=== PATIENT | male | born 1950 | race Caucasian/White ===

== ENCOUNTER 2024-11-15 21:33 | Inpatient (IN) | payer OTHER, MEDICARE ==
[~2024-11-15] VITALS: Ht 188 cm; Wt 72.4 kg
[2024-11-15 21:53] LABS: BASOPHILS % (AUTO) 0.3 % (0-1); EOSINOPHILS # (AUTO) 0.1 X10'3 (0-0.9); EOSINOPHILS % (AUTO) 0.3 % (0-6); HEMATOCRIT 38.8 % (42.0-52.0); HEMOGLOBIN 13.1 g/dl (14.0-17.9); LYMPHOCYTES # (AUTO) 1.7 X10'3 (1.1-4.8); LYMPHOCYTES % (AUTO) 12.1 % (21-51); MEAN CORPUSCULAR HEMOGLOBIN 30.7 PG (27.0-31.0); MEAN CORPUSCULAR HGB CONC 33.9 g/dL (33.0-36.5); MEAN CORPUSCULAR VOLUME 90.5 FL (78-98); MEAN PLATELET VOLUME 8.8 FL (7.4-10.4); MONOCYTES % (AUTO) 6.9 % (2-12); NEUTROPHILS # (AUTO) 11.7 X10'3 (1.8-7.7); NEUTROPHILS % (AUTO) 80.4 % (42-75); PLATELET COUNT 198 X10'3 (140-440); RED BLOOD COUNT 4.28 X10'6 (4.70-6.10); RED CELL DISTRIBUTION WIDTH 14.2 % (11.5-14.5); WHITE BLOOD COUNT 14.5 X10'3 (4.5-11.0)
[2024-11-15] MEDS ORDERED: iohexol 350 MG/ML 50ML vial IV ONE (21:58)
[2024-11-15] MEDS ORDERED: fentaNYL/PF 50MCG/1 ML 2ML syringe ONE (21:58)
[2024-11-15] MEDS ORDERED: iohexol 350MG/ML 100ml bottle IV ONE ×2 (21:58→22:15)
[2024-11-15] MEDS ORDERED: heparin 1,000unit/ml 10ml vial 10 ML ONE (21:58)
[2024-11-15] MEDS ORDERED: midazolam 1 mg/ML 2ml injection ONE (21:58)
[2024-11-15] MEDS ORDERED: verapamil 2.5 mg/ml inj IV ONE (21:58)
[2024-11-15] MEDS ORDERED: LIDOcaine 1% (10mg/ml) 2ml vial ONE (21:58)
[2024-11-15] MEDS ORDERED: nitroGLYCERIN 500mcg/5mL D5W 5 ML IV ONE ×2 (22:01→22:44)
[2024-11-15 22:07] LABS: APTT 43 SECONDS (22-32); INR 1.1 INR; PROTHROMBIN TIME 11.1 SECONDS (9.0-12.0)
[2024-11-15 22:09] LABS: ALANINE AMINOTRANSFERASE 18 U/L (12-78); ALBUMIN 3.4 G/DL (3.4-5.0); ALKALINE PHOSPHATASE 56 IU/L (46-116); ANION GAP 9 (8-16); ASPARTATE AMINO TRANSFERASE 12 U/L (10-37); BILIRUBIN,TOTAL 0.8 MG/DL (0.1-1.0); BLOOD UREA NITROGEN 22 MG/DL (7-18); BUN/CREATININE RATIO 16.8 (10.0-20.0); CALCIUM 8.6 MG/DL (8.5-10.1); CHLORIDE 107 MMOL/L (99-107); CREATININE 1.31 MG/DL (0.60-1.10); GLUCOSE 164 MG/DL (70-104); POTASSIUM 3.9 MMOL/L (3.5-5.1); SODIUM 139 MMOL/L (135-145); TOTAL CARBON DIOXIDE 23.5 MMOL/L (24-32); TOTAL PROTEIN 6.7 G/DL (6.4-8.2); eCRCL 49 ML/MIN; eGFR 53 ML/MIN
[2024-11-15] MEDS ORDERED: atropine 0.1mg/ml 10ml syringe ONE (22:13)
[2024-11-15] MEDS ORDERED: LIDOcaine 1% 30ml preserv. free vial ONE (22:13)
[2024-11-15 22:16] LABS: PRO BRAIN NATRIURETIC PEPTIDE 118 PG/ML (0-450)
[2024-11-15 22:27] LABS: CREATINE KINASE 61 U/L (39-308); LIPASE 20 U/L (16-77); MAGNESIUM 2.1 MG/DL (1.5-2.4)
[2024-11-15] MEDS ORDERED: ticagrelor 90mg tablet ONE (22:49)
[2024-11-16] VITALS (18 sets, daily range): BP systolic 121–155; BP diastolic 51–70; PULSE 49–66; RESP 14–24; TEMP 97.2–98.7; O2SAT 95–98
[2024-11-16] MEDS ORDERED: acetaminophen 325mg tablet PO PRN (00:05)
[2024-11-16] MEDS ORDERED: HYDROcodone/acetaminophen 5mg/325mg tablet PO PRN (00:05)
[2024-11-16] MEDS ORDERED: potassium Cl 40MEQ/1/2NS 520ml 520 ML IV PRN (00:05)
[2024-11-16] MEDS ORDERED: ondansetron/PF 4mg/2ml inj IV PRN ×2 (00:05)
[2024-11-16] MEDS ORDERED: magnesium hydroxide 30ml (MOM) UD suspension PO PRN (00:05)
[2024-11-16] MEDS ORDERED: magnesium sulf-water 2g/50mL 50 ML IV PRN (00:05)
[2024-11-16] MEDS ORDERED: potassium Cl 20 mEq SR tablet PO PRN ×2 (00:05)
[2024-11-16] MEDS ORDERED: magnesium sulf-water 4G/100mL 100 ML IV PRN (00:05)
[2024-11-16] MEDS ORDERED: mag hydrox/Alum hydrox/simeth 30ml oral suspension PO PRN (00:05)
[2024-11-16] MEDS ORDERED: magnesium Cl slow-release 64mg tablet PO PRN (00:05)
[2024-11-16] MEDS ORDERED: proCHLORperazine 10 MG/2 ml inj IV PRN (00:10)
[2024-11-16] MEDS ORDERED: HYDROcodone/acetaminophen 10/325mg tab PO PRN (00:10)
[2024-11-16] MEDS ORDERED: OXAZEpam 15mg capsule PO PRN (00:10)
[2024-11-16] MEDS: normal saline 1000ml 1,000 ML IV SCH (00:10)
[2024-11-16] MEDS ORDERED: PERFLUTREN PROTEIN-A MICROSPHR (Optison) 0.22 MG/ML 3ML VIAL IV PRN (00:15)
[2024-11-16] MEDS ORDERED: nitroGLYCERIN 0.4mg SUBLingual tab SL PRN (00:20)
[2024-11-16] MEDS ORDERED: heparin 25,000 UNIT/250ml bag 250 ML IV PRN (00:25)
[2024-11-16] MEDS: morphine 2 MG/ML inj. syringe IV PRN (00:52)
[2024-11-16] MEDS: LidoCAINE 2% Topical Jelly 11mL syringe (UROJET) TOP ONE (02:15)
[2024-11-16] MEDS ORDERED: UNABLE TO OBTAIN (02:43)
[2024-11-16] MEDS: HYDROcodone/acetaminophen 5mg/325mg tablet PO PRN (06:44)
[2024-11-16 07:13] LABS: BASOPHILS % (AUTO) 0.2 % (0-1); EOSINOPHILS % (AUTO) 0.1 % (0-6); HEMOGLOBIN 12.1 g/dl (14.0-17.9); LYMPHOCYTES # (AUTO) 1.1 X10'3 (1.1-4.8); LYMPHOCYTES % (AUTO) 15.1 % (21-51); MEAN CORPUSCULAR HEMOGLOBIN 30.7 PG (27.0-31.0); MEAN CORPUSCULAR HGB CONC 33.8 g/dL (33.0-36.5); MEAN CORPUSCULAR VOLUME 90.8 FL (78-98); MONOCYTES # (AUTO) 0.5 X10'3 (0-0.9); MONOCYTES % (AUTO) 6.9 % (2-12); NEUTROPHILS # (AUTO) 5.4 X10'3 (1.8-7.7); NEUTROPHILS % (AUTO) 77.7 % (42-75); PLATELET COUNT 161 X10'3 (140-440); RED BLOOD COUNT 3.96 X10'6 (4.70-6.10); RED CELL DISTRIBUTION WIDTH 14.5 % (11.5-14.5)
[2024-11-16 07:46] LABS: ALANINE AMINOTRANSFERASE 24 U/L (12-78); ALBUMIN 3.1 G/DL (3.4-5.0); ALBUMIN/GLOBULIN RATIO 0.9 (1.1-1.5); ALKALINE PHOSPHATASE 53 IU/L (46-116); ANION GAP 10 (8-16); ASPARTATE AMINO TRANSFERASE 51 U/L (10-37); BILIRUBIN,TOTAL 0.7 MG/DL (0.1-1.0); BLOOD UREA NITROGEN 18 MG/DL (7-18); BUN/CREATININE RATIO 15.9 (10.0-20.0); CALCIUM 8.3 MG/DL (8.5-10.1); CHLORIDE 106 MMOL/L (99-107); CHOL/HDL RATIO 3.5 (0.00-4.99); CHOLESTEROL 175 MG/DL (0-200); CREATININE 1.13 MG/DL (0.60-1.10); GLUCOSE 124 MG/DL (70-104); HDL CHOLESTEROL 50 MG/DL (35-60); LDL CHOLESTEROL 108 MG/DL (50-100); MAGNESIUM 1.7 MG/DL (1.5-2.4); POTASSIUM 4.6 MMOL/L (3.5-5.1); SODIUM 139 MMOL/L (135-145); TOTAL CARBON DIOXIDE 23.2 MMOL/L (24-32); TOTAL PROTEIN 6.4 G/DL (6.4-8.2); TRIGLYCERIDES 67 MG/DL (20-135); eCRCL 57 ML/MIN; eGFR 63 ML/MIN
[2024-11-16] MEDS ORDERED: ticagrelor 90mg tablet PO SCH (08:00)
[2024-11-16] MEDS: K and/or MAG REPLACEMENT MC SCH (08:00)
[2024-11-16] MEDS: docusate sod 100mg capsule PO SCH (09:28)
[2024-11-16] MEDS ORDERED: atorvastatin 20mg tablet PO SCH (20:00)
[2024-11-16] MEDS ORDERED: aspirin 81mg, enteric-coated 1 TAB TABLET.DR PO SCH (20:00)
[2024-11-16] MEDS: ticagrelor 90mg tablet PO SCH (21:23)
[2024-11-16] MEDS: carVEDilol 3.125mg tablet PO SCH (21:24)
[2024-11-16] MEDS: aspirin 81mg, enteric-coated 1 TAB TABLET.DR PO SCH (21:24)
[2024-11-16] MEDS: atorvastatin 20mg tablet PO SCH (21:24)
[2024-11-16] MEDS: acetaminophen 325mg tablet PO PRN (22:53)
[2024-11-17 02:00] VITALS: BP 116/52; PULSE 58; RESP 20; TEMP 98.4; O2SAT 98
[2024-11-17 06:00] VITALS: BP 118/89; PULSE 90; RESP 18; TEMP 96.9; O2SAT 94
[2024-11-17 07:54] LABS: BASOPHILS % (AUTO) 0.4 % (0-1); EOSINOPHILS # (AUTO) 0.1 X10'3 (0-0.9); EOSINOPHILS % (AUTO) 1.7 % (0-6); HEMATOCRIT 35.9 % (42.0-52.0); HEMOGLOBIN 12.4 g/dl (14.0-17.9); LYMPHOCYTES # (AUTO) 2.1 X10'3 (1.1-4.8); LYMPHOCYTES % (AUTO) 24.4 % (21-51); MEAN CORPUSCULAR HEMOGLOBIN 31.1 PG (27.0-31.0); MEAN CORPUSCULAR HGB CONC 34.4 g/dL (33.0-36.5); MEAN CORPUSCULAR VOLUME 90.3 FL (78-98); MEAN PLATELET VOLUME 9.1 FL (7.4-10.4); NEUTROPHILS # (AUTO) 5.2 X10'3 (1.8-7.7); NEUTROPHILS % (AUTO) 61.5 % (42-75); PLATELET COUNT 147 X10'3 (140-440); RED BLOOD COUNT 3.98 X10'6 (4.70-6.10); RED CELL DISTRIBUTION WIDTH 14.1 % (11.5-14.5); WHITE BLOOD COUNT 8.4 X10'3 (4.5-11.0)
[2024-11-17 08:00] VITALS: RESP 16; O2SAT 94
[2024-11-17 08:58] LABS: ALANINE AMINOTRANSFERASE 21 U/L (12-78); ALBUMIN 2.8 G/DL (3.4-5.0); ALBUMIN/GLOBULIN RATIO 0.8 (1.1-1.5); ALKALINE PHOSPHATASE 46 IU/L (46-116); ANION GAP 10 (8-16); ASPARTATE AMINO TRANSFERASE 48 U/L (10-37); BILIRUBIN,TOTAL 0.9 MG/DL (0.1-1.0); BLOOD UREA NITROGEN 18 MG/DL (7-18); BUN/CREATININE RATIO 15.8 (10.0-20.0); CALCIUM 8.4 MG/DL (8.5-10.1); CHLORIDE 107 MMOL/L (99-107); CREATININE 1.14 MG/DL (0.60-1.10); GLUCOSE 97 MG/DL (70-104); MAGNESIUM 1.9 MG/DL (1.5-2.4); POTASSIUM 4.3 MMOL/L (3.5-5.1); SODIUM 139 MMOL/L (135-145); TOTAL CARBON DIOXIDE 22.4 MMOL/L (24-32); TOTAL PROTEIN 6.1 G/DL (6.4-8.2); eCRCL 56 ML/MIN; eGFR 62 ML/MIN
[2024-11-17 11:00] VITALS: BP 133/60; PULSE 97; RESP 18; TEMP 97.7; O2SAT 97
[2024-11-17] MEDS ORDERED: NITR0.4T51 SL (13:03)
[2024-11-17] MEDS ORDERED: CARV-164 PO (13:03)
[2024-11-17] MEDS ORDERED: ASPI-1071 PO (13:03)
[2024-11-17] MEDS ORDERED: TICA90TA PO (13:03)
[2024-11-17] MEDS ORDERED: ATOR20TA66 PO (13:03)
[2024-11-17 15:00] VITALS: BP 130/72; PULSE 64; RESP 16; TEMP 97.6; O2SAT 97
== END 2024-11-17 16:20 | disposition home or self-care (01) | DRG 321 ==
LOC: ER 21:33 → UNDOADMIN 23:47 → PCU 3S 23:47
PROVIDERS: ADMIT Internal Medicine Pulmonary Disease; ATTEND Family Medicine
PROC: 027034Z Dilation of Coronary Artery, One Artery with Drug-eluting Intraluminal Device, Percutaneous Approach (ICD-10-PCS; principal; 2024-11-15)
PROC: 4A023N7 Measurement of Cardiac Sampling and Pressure, Left Heart, Percutaneous Approach (ICD-10-PCS; 2024-11-15)
PROC: B2110ZZ Fluoroscopy of Multiple Coronary Arteries using High Osmolar Contrast (ICD-10-PCS; 2024-11-15)
PROC: B2150ZZ Fluoroscopy of Left Heart using High Osmolar Contrast (ICD-10-PCS; 2024-11-15)
PROC: B2131ZZ Fluoroscopy of Multiple Coronary Artery Bypass Grafts using Low Osmolar Contrast (ICD-10-PCS; 2024-11-15)
DX: T82.898A Other specified complication of vascular prosthetic devices, implants and grafts, initial encounter (principal); I21.29 ST elevation (STEMI) myocardial infarction involving other sites; N17.0 Acute kidney failure with tubular necrosis; I25.10 Atherosclerotic heart disease of native coronary artery without angina pectoris; K21.9 Gastro-esophageal reflux disease without esophagitis; I10 Essential (primary) hypertension; Y83.8 Other surgical procedures as the cause of abnormal reaction of the patient, or of later complication, without mention of misadventure at the time of the procedure; E78.00 Pure hypercholesterolemia, unspecified; Z87.891 Personal history of nicotine dependence; Y92.89 Other specified places as the place of occurrence of the external cause; Z95.1 Presence of aortocoronary bypass graft
CPT/HCPCS: 36415; 71045; 80053; 80061; 82550; 83036; 83690; 83735; 83874; 83880; 84484; 85025; 85347; 85610; 85730; 86885; 86900; 86901; 87081; 93005; 93306; 99291; G0378; J0461; J1644; J2003; J2250; J2270; J3010; J3490; J7030; Q9967